=== PATIENT | female | born 1955 | race Caucasian/White ===

== ENCOUNTER 2019-12-08 23:16 | Emergency (ER) | payer OTHER ==
[~2019-12-08] VITALS: Ht 162.6 cm; Wt 105.0 kg
[2019-12-09 00:10] LABS: BASOPHILS # (AUTO) 0.2 X10'3 (0-0.2); BASOPHILS % (AUTO) 1.7 % (0-1); EOSINOPHILS # (AUTO) 0.3 X10'3 (0-0.9); HEMATOCRIT 49.4 % (35.0-45.0); HEMOGLOBIN 16.7 g/dl (12.0-16.0); LYMPHOCYTES # (AUTO) 2.8 X10'3 (1.1-4.8); LYMPHOCYTES % (AUTO) 25.9 % (21-51); MEAN CORPUSCULAR HEMOGLOBIN 32.8 PG (27.0-31.0); MEAN CORPUSCULAR HGB CONC 33.7 g/dL (33.0-36.5); MEAN CORPUSCULAR VOLUME 97.4 FL (78-98); MEAN PLATELET VOLUME 8.9 FL (7.4-10.4); MONOCYTES # (AUTO) 1.7 X10'3 (0-0.9); MONOCYTES % (AUTO) 15.5 % (2-12); NEUTROPHILS # (AUTO) 5.7 X10'3 (1.8-7.7); NEUTROPHILS % (AUTO) 53.9 % (42-75); PLATELET COUNT 261 X10'3 (140-440); RED BLOOD COUNT 5.08 X10'6 (4.20-5.60); RED CELL DISTRIBUTION WIDTH 13.4 % (11.5-14.5); WHITE BLOOD COUNT 10.7 X10'3 (4.5-11.0)
[2019-12-09 00:31] LABS: ALANINE AMINOTRANSFERASE 21 U/L (12-78); ALBUMIN 3.7 G/DL (3.4-5.0); ALBUMIN/GLOBULIN RATIO 1.1 (1.1-1.5); ALKALINE PHOSPHATASE 132 IU/L (46-116); ANION GAP 8 (8-16); ASPARTATE AMINO TRANSFERASE 14 U/L (10-37); BILIRUBIN,TOTAL 0.4 MG/DL (0.1-1.0); BLOOD UREA NITROGEN 16 MG/DL (7-18); BUN/CREATININE RATIO 15.2 (6.6-38.0); CALCIUM 9.3 MG/DL (8.5-10.1); CHLORIDE 105 MMOL/L (99-107); CREATININE 1.05 MG/DL (0.40-0.90); GLUCOSE 105 MG/DL (70-104); POTASSIUM 3.3 MMOL/L (3.5-5.1); SODIUM 140 MMOL/L (135-145); TOTAL CARBON DIOXIDE 27.1 MMOL/L (24-32); eGFR 53 ML/MIN
[2019-12-09 00:34] LABS: TOTAL CELLS COUNTED 100
[2019-12-09 00:35] LABS: PLATELET ESTIMATE NORMAL
[2019-12-09 01:14] VITALS: BP 158/67
== END 2019-12-09 01:15 | disposition home or self-care (01) ==
LOC: ER 23:17
DX: R07.89 Other chest pain (principal); R00.2 Palpitations; R06.02 Shortness of breath; E78.00 Pure hypercholesterolemia, unspecified; I10 Essential (primary) hypertension; E11.9 Type 2 diabetes mellitus without complications; F17.200 Nicotine dependence, unspecified, uncomplicated
CPT/HCPCS: 71045; 80053; 83880; 84484; 85007; 85025; 93005; 99285

== ENCOUNTER 2020-03-13 01:20 | Inpatient (IN) | payer OTHER, MEDICARE ==
[~2020-03-13] VITALS: Ht 162.6 cm; Wt 110.0 kg
[2020-03-13] VITALS (24 sets, daily range): BP systolic 81–126; BP diastolic 35–69
[~2020-03-13 01:20] MED LIST: ALPR1TAB7 PO; GLIP5TAB13 PO; METF-438 PO; METO-411 PO
[2020-03-13 02:32] LABS: ALANINE AMINOTRANSFERASE 20 U/L (12-78); ALBUMIN 3.2 G/DL (3.4-5.0); ALBUMIN/GLOBULIN RATIO 0.8 (1.1-1.5); ALKALINE PHOSPHATASE 148 IU/L (46-116); ANION GAP 11 (8-16); ASPARTATE AMINO TRANSFERASE 21 U/L (10-37); BILIRUBIN,TOTAL 0.5 MG/DL (0.1-1.0); BLOOD UREA NITROGEN 17 MG/DL (7-18); BUN/CREATININE RATIO 11.6 (6.6-38.0); CALCIUM 9.5 MG/DL (8.5-10.1); CHLORIDE 104 MMOL/L (99-107); CREATININE 1.46 MG/DL (0.40-0.90); GLUCOSE 127 MG/DL (70-104); POTASSIUM 5.1 MMOL/L (3.5-5.1); SODIUM 136 MMOL/L (135-145); TOTAL CARBON DIOXIDE 21.3 MMOL/L (24-32); TOTAL PROTEIN 7.3 G/DL (6.4-8.2); eGFR 36 ML/MIN
[2020-03-13] MEDS ORDERED: vancomycin/NS 1 GM ADD-VANTAGE 250 ML IV ONE (02:50)
[2020-03-13 02:55] LABS: BASOPHILS # (AUTO) 0.1 X10'3 (0-0.2); EOSINOPHILS # (AUTO) 0.5 X10'3 (0-0.9); HEMOGLOBIN 11.5 g/dl (12.0-16.0)
[2020-03-13] MEDS ORDERED: magnesium Cl slow-release 64mg tablet PO PRN (02:55)
[2020-03-13] MEDS ORDERED: magnesium 4gm in 100ml NS 100 ML IV PRN (02:55)
[2020-03-13] MEDS ORDERED: potassium Cl 20 mEq SR tablet PO PRN ×2 (02:55)
[2020-03-13] MEDS ORDERED: mag hydrox/Alum hydrox/simeth 30ml oral suspension PO PRN (02:55)
[2020-03-13] MEDS ORDERED: potassium CL 10mEq/100ml bag 100 ML IV PRN ×2 (02:55)
[2020-03-13] MEDS ORDERED: magnesium hydroxide 30ml (MOM) UD suspension PO PRN (02:55)
[2020-03-13] MEDS ORDERED: magnesium 2GM in 50ml NS 50 ML IV PRN (02:55)
[2020-03-13 02:57] LABS: BASOPHILS % (AUTO) 0.9 % (0-1); EOSINOPHILS % (AUTO) 3.9 % (0-6); LYMPHOCYTES # (AUTO) 1.3 X10'3 (1.1-4.8); LYMPHOCYTES % (AUTO) 9.5 % (21-51); MEAN CORPUSCULAR HGB CONC 32.9 g/dL (33.0-36.5); MEAN CORPUSCULAR VOLUME 97.2 FL (78-98); MEAN PLATELET VOLUME 9.3 FL (7.4-10.4); MONOCYTES # (AUTO) 1.9 X10'3 (0-0.9); NEUTROPHILS # (AUTO) 9.7 X10'3 (1.8-7.7); NEUTROPHILS % (AUTO) 71.7 % (42-75); PLATELET COUNT 264 X10'3 (140-440); WHITE BLOOD COUNT 13.5 X10'3 (4.5-11.0)
[2020-03-13] MEDS ORDERED: METO100T7 PO (03:05)
[2020-03-13] MEDS ORDERED: FURO40TA4 PO (03:06)
[2020-03-13] MEDS ORDERED: POTA10CA44 PO (03:07)
[2020-03-13] MEDS ORDERED: DIPH25CA83 PO (03:08)
[2020-03-13] MEDS ORDERED: IBUP-2417 PO (03:15)
[2020-03-13] MEDS ORDERED: MELA10TA2 PO (03:15)
[2020-03-13] MEDS ORDERED: MULT-1085 PO (03:15)
[2020-03-13] MEDS ORDERED: OMEP40CA13 PO (03:15)
[2020-03-13] MEDS ORDERED: VIT1CAPS46 PO (03:15)
[2020-03-13] MEDS ORDERED: ASPI81TA52 PO (03:15)
[2020-03-13] MEDS ORDERED: ACET-2119 PO (03:15)
[2020-03-13] MEDS ORDERED: DOCU-171 PO (03:15)
[2020-03-13 03:17] LABS: CLARITY,URINE CLEAR (Clear); COLOR,URINE YELLOW (Yellow); GLUCOSE, URINE NEGATIVE (Neg); KETONES,URINE NEGATIVE (Neg); LEUKOCYTE ESTERASE ,URINE SMALL (Neg); NITRITES, URINE NEGATIVE (Neg); OCCULT BLOOD,URINE SMALL (Neg); PROTEIN,URINE 30 mg/dl (Neg); UROBILINOGEN,URINE 0.2 E.U/dL (0.2-1.0)
[2020-03-13 03:19] LABS: UA COLLECTION TYPE STRAIGHT CATH
[2020-03-13 03:24] LABS: SQUAMOUS EPITHELIAL CELL,UR FEW /LPF (FEW)
[2020-03-13 03:25] LABS: BACTERIA,URINE 4+ /HPF (Neg); RBC,URINE 0-2 /HPF (0-2); WBC CLUMPS,URINE MODERATE /HPF (NEGATIVE); WBC,URINE 50-100 /HPF (0-4)
[2020-03-13] MEDS: normal saline 1000ml 1,000 ML IV SCH ×3 (03:36→22:55)
[2020-03-13 04:58] LABS: LARGE PLATELETS FEW; PLATELET ESTIMATE NORMAL; TOTAL CELLS COUNTED 100
[2020-03-13 04:59] LABS: STOMATOCYTES 1+
[2020-03-13 05:00] LABS: ANISOCYTOSIS 1+
[2020-03-13 05:01] LABS: POLYCHROMASIA FEW
[2020-03-13 05:02] LABS: TOXIC VACUOLATION 1+
[2020-03-13 05:03] LABS: TOXIC GRANULATION 1+
[2020-03-13] MEDS ORDERED: metoprolol succinate 25mg (24-HOUR) SR. Tablet PO PRN (05:45)
[2020-03-13] MEDS ORDERED: ibuprofen 200mg tablet PO PRN (05:45)
[2020-03-13] MEDS ORDERED: dextrose 50%-water 50ml dispensing syringe IV PRN ×2 (05:50)
[2020-03-13] MEDS ORDERED: MESSAGE TO PHARMACY PO ONE (05:50)
[2020-03-13] MEDS ORDERED: dextrose ORAL solution 15 GM/59 ML bottle PO PRN ×2 (05:50)
[2020-03-13] MEDS ORDERED: glucagon, human recombinant 1mg kit SUBCUT PRN (05:50)
[2020-03-13] MEDS ORDERED: insulin Lispro (HumaLOG) vial - multi-dose SQ SCH (05:50)
--- NOTE | 2020-03-13 06:29 | NUR ---
Patient in room [facility]. I have received report from ALFREDO Montalvo and had the opportunity to ask questions and assume patient care.
--- NOTE | 2020-03-13 06:51 | NUR ---
Problems reprioritized. Patient report given, questions answered & plan of care reviewed with Sara. Addendum: 03/13/20 at 0652 by Salvatore Dozier RN Amended: Links added.
[2020-03-13] MEDS: ALPRAZolam 0.5mg tablet PO PRN (06:56)
[2020-03-13] MEDS: CefTRIAXone/D5W-Rocephin 1gm 50 ML IV SCH (07:01)
[2020-03-13] MEDS: furosemide 40mg tablet PO SCH (07:05)
[2020-03-13] MEDS: aspirin 81mg tablet.DR PO SCH (07:05)
[2020-03-13] MEDS: K and/or MAG REPLACEMENT MC SCH ×2 (07:05→20:00)
[2020-03-13] MEDS ORDERED: ringers solution, lacted 1,000 ML IV SCH ×2 (07:40→13:40)
[2020-03-13] MEDS ORDERED: famotidine/PF 10 mg/ml inj IV ONE (07:45)
[2020-03-13] MEDS: vancomycin/NS 1 GM ADD-VANTAGE 250 ML X 1 DOSE IV SCH (08:12)
[2020-03-13 09:06] LABS: PARTIAL THROMBOPLASTIN TIME 30 SECONDS (22-32)
--- NOTE | 2020-03-13 11:03 | NUR ---
Patient c/o itching due to eczema. Dr. Koroma notified. PAGER ID: [phone] MESSAGE: Ashliea- Dorothea Otero- patient has eczema. c/o itching. states normally takes Benadryl po at home but does not want PO as "it'll dry my mouth right up." OK to have IV benardryl for the itching? Thank you- Sara [id number]
[2020-03-13] MEDS: triamcinolone acet 0.1% cream 15gm TP SCH ×2 (12:15→20:00)
[2020-03-13] MEDS ORDERED: vancomycin 1,000mg inj ONE (13:17)
--- NOTE | 2020-03-13 13:19 | NUR ---
Patient down to OR.
--- NOTE | 2020-03-13 13:21 | NUR ---
Called report to ALFREDO Oliva.
--- NOTE | 2020-03-13 13:36 | NUR ---
Dr. Koroma notified of patient's positive blood cultures. PAGER ID: [phone] MESSAGE: [id number]- Dorothea Otero-(+) blood cultures. anaerobic bottle 03/13 gram neg rods. - sita [id number]
[2020-03-13] MEDS ORDERED: ondansetron/PF 4mg/2ml inj IV PRN (13:40)
[2020-03-13] MEDS ORDERED: meperidine/PF 25mg/ml syringe IV PRN ×3 (13:40)
[2020-03-13] MEDS ORDERED: proCHLORperazine 10 MG/2 ml inj IV PRN (13:40)
[2020-03-13] MEDS ORDERED: morphine 2 MG/ML inj. syringe IV PRN ×3 (13:40→20:45)
[2020-03-13] MEDS ORDERED: morphine 4 MG/ML inj SYRINge IV PRN (13:40)
[2020-03-13] MEDS ORDERED: fentaNYL/PF 50MCG/1 ML 2ML syringe ONE ×2 (13:41→13:44)
[2020-03-13] MEDS ORDERED: MIDAZolam 5mg/5ml vial ONE (13:43)
[2020-03-13] MEDS ORDERED: propofol inj 20 ML IV ONE (14:19)
--- NOTE | 2020-03-13 15:12 | NUR ---
FROM OR WITH DR. POLANCO ON SURGICAL BED. DSG CDI TO LEFT HIP. NAKUL DSG DCI. PPP. SKIN WARM AND DRY.CO PAIN, MED WITH DEMEROL.
--- NOTE | 2020-03-13 15:26 | NUR ---
DM Consult: Pt A1C less than 7 and not appropriate for DM ed at this time. To f/u 03/18 for initial assessment. Addendum: 03/13/20 at [address] Amended: Links added.
--- NOTE | 2020-03-13 15:33 | NUR ---
LAB CALLED. PATIENT HAS 2 MORE BOTTLES POSITIVE POSITIVE BETWEEN 9-11 HOURS 2 RIGHT ARM AND 1 IV START SITE POSITIVE FOR GRAM NEGATIVE RODS.
--- NOTE | 2020-03-13 15:36 | NUR ---
Dr Koroma notified of patient's 2 more bottles blood cultures positive. LAB CALLED. PATIENT HAS 2 MORE BOTTLES POSITIVE POSITIVE BETWEEN 9-11 HOURS 2 RIGHT ARM AND 1 IV START SITE POSITIVE FOR GRAM NEGATIVE RODS.
--- NOTE | 2020-03-13 15:42 | NUR ---
STILL TREATING FOR EXCRUCIATING PAIN. SWITCHED FROM DEMEROL TO MORPHINE.
[2020-03-13] MEDS ORDERED: meperidine/PF 25mg/ml syringe ONE (15:45)
--- NOTE | 2020-03-13 16:12 | NUR ---
PT STARTING TO GET SOME RELIEF FROM PAIN. BP IS LOW, DR POLANCO NOTIFIED FOR POSSIBLE TYLENOL IV DUE TO HYPOTENSION.
[2020-03-13] MEDS: morphine 2 MG/ML inj. syringe IV PRN ×2 (16:26→16:42)
--- NOTE | 2020-03-13 17:00 | NUR ---
Received report from ALFREDO Oliva.
--- NOTE | 2020-03-13 17:02 | NUR ---
PATIENT A&OX4, C/O PAIN AT TIMES SEE EMAR, V/S STABLE, NAKUL DRESSING CDI LLE HIP. SCD ON, 20G PIV RAC. PATIENT TAKEN TO 346A WITH ALL BELONGINGS AND HOOKED UP TO MONITORS IN ROOM AND REPORT GIVEN TO SEO ANALYST WHO HAS TAKEN OVER PATIENT CARE,
--- NOTE | 2020-03-13 17:39 | NUR ---
Received patient to room 344A in bed accompanied by ALFREDO Oliva. Patient c/o pain to left hip. Wilner dressing to left hip CDI. BP was 93/35, pulse 89, 70% RA. Changed spo2 probe to different finger and O2 went up to 96% RA. Per ALFREDO Oliva vitals have remained stable in recovery room. BP rechecked and 104/43. Patient placed on 2LNC 94,99% . Charge Karo in at bedside to assess patient. Bed placed in Trendelenburg position. Patient is alert and oriented with no comlaints other than pain to left hip. SCDs on. Immobilizer to left leg. Will continue to monitor.
--- NOTE | 2020-03-13 18:30 | NUR ---
Patient in room [facility]. I have received report from Sara FUENTES and had the opportunity to ask questions and assume patient care.
--- NOTE | 2020-03-13 18:46 | NUR ---
Problems reprioritized. Patient report given, questions answered & plan of care reviewed with ALFREDO Walls.
[2020-03-13] MEDS ORDERED: enoxaparin 40mg/0.4ml syringe SQ SCH (20:00)
[2020-03-13] MEDS ORDERED: triamcinolone acet 0.1% cream 15gm TP SCH (20:00)
[2020-03-13] MEDS: acetaminophen 325mg tablet PO PRN (20:26)
[2020-03-13] MEDS: lactobacillus rhamnosus 10,000 MMU CELLS/CAPSULE PO SCH (20:27)
[2020-03-13] MEDS: Melatonin 3mg tablet PO SCH (20:28)
[2020-03-13] MEDS: insulin glargine (Lantus) pen - multi-dose SQ SCH (21:00)
[2020-03-13] MEDS ORDERED: MELATONIN 10 MG PO SCH (21:00)
[2020-03-14] VITALS: BP 111/46
[2020-03-14 02:00] VITALS: BP 94/43
[2020-03-14] MEDS: ondansetron/PF 4mg/2ml inj IV PRN ×3 (02:03→21:52)
[2020-03-14] MEDS: oxyCODONE/APAP 5-325mg tablet PO PRN ×4 (02:03→21:51)
[2020-03-14] MEDS: triamcinolone acet 0.1% cream 15gm TP SCH ×2 (02:21→20:00)
[2020-03-14] MEDS: ALPRAZolam 0.5mg tablet PO PRN ×3 (02:26→23:12)
[2020-03-14 05:23] LABS: EOSINOPHILS # (AUTO) 0.7 X10'3 (0-0.9); WHITE BLOOD COUNT 12.5 X10'3 (4.5-11.0)
[2020-03-14 05:26] LABS: BASOPHILS % (AUTO) 0.3 % (0-1); EOSINOPHILS % (AUTO) 5.8 % (0-6); HEMATOCRIT 28.8 % (35.0-45.0); HEMOGLOBIN 9.4 g/dl (12.0-16.0); LYMPHOCYTES # (AUTO) 1.5 X10'3 (1.1-4.8); LYMPHOCYTES % (AUTO) 11.7 % (21-51); MEAN CORPUSCULAR HEMOGLOBIN 32.1 PG (27.0-31.0); MEAN CORPUSCULAR HGB CONC 32.6 g/dL (33.0-36.5); MEAN CORPUSCULAR VOLUME 98.5 FL (78-98); MEAN PLATELET VOLUME 9.4 FL (7.4-10.4); MONOCYTES # (AUTO) 2.1 X10'3 (0-0.9); MONOCYTES % (AUTO) 16.6 % (2-12); NEUTROPHILS # (AUTO) 8.2 X10'3 (1.8-7.7); NEUTROPHILS % (AUTO) 65.6 % (42-75); PLATELET COUNT 220 X10'3 (140-440); RED BLOOD COUNT 2.92 X10'6 (4.20-5.60); RED CELL DISTRIBUTION WIDTH 14.3 % (11.5-14.5)
[2020-03-14 05:37] LABS: ALANINE AMINOTRANSFERASE 13 U/L (12-78); ALBUMIN 2.1 G/DL (3.4-5.0); ALBUMIN/GLOBULIN RATIO 0.7 (1.1-1.5); ALKALINE PHOSPHATASE 102 IU/L (46-116); ANION GAP 8 (8-16); ASPARTATE AMINO TRANSFERASE 14 U/L (10-37); BILIRUBIN,TOTAL 0.5 MG/DL (0.1-1.0); BLOOD UREA NITROGEN 20 MG/DL (7-18); BUN/CREATININE RATIO 11.1 (6.6-38.0); CALCIUM 8.4 MG/DL (8.5-10.1); CHLORIDE 110 MMOL/L (99-107); GLUCOSE 117 MG/DL (70-104); MAGNESIUM 1.8 MG/DL (1.5-2.4); POTASSIUM 4.6 MMOL/L (3.5-5.1); SODIUM 140 MMOL/L (135-145); TOTAL CARBON DIOXIDE 22.2 MMOL/L (24-32); TOTAL PROTEIN 5.3 G/DL (6.4-8.2); eGFR 28 ML/MIN
--- NOTE | 2020-03-14 06:15 | NUR ---
bolus 200ml of NS for hypotension informed oncoming nurse
--- NOTE | 2020-03-14 06:48 | NUR ---
Problems reprioritized. Patient report given, questions answered & plan of care reviewed with Kaelyn FUENTES.
[2020-03-14 07:27] LABS: ANISOCYTOSIS 1+; PLATELET ESTIMATE NORMAL; TOTAL CELLS COUNTED 100
[2020-03-14 07:28] LABS: LARGE PLATELETS FEW; POLYCHROMASIA FEW; TOXIC GRANULATION 1+; TOXIC VACUOLATION 1+
[2020-03-14 08:00] VITALS: BP 95/37
[2020-03-14] MEDS: furosemide 40mg tablet PO SCH (08:00)
[2020-03-14] MEDS: K and/or MAG REPLACEMENT MC SCH ×2 (08:00→20:00)
[2020-03-14] MEDS: normal saline 1000ml 1,000 ML IV SCH ×2 (08:55→20:38)
[2020-03-14] MEDS: CefTRIAXone/D5W-Rocephin 1gm 50 ML IV SCH (09:47)
[2020-03-14] MEDS: aspirin 81mg tablet.DR PO SCH (09:47)
[2020-03-14] MEDS: lactobacillus rhamnosus 10,000 MMU CELLS/CAPSULE PO SCH ×2 (09:47→21:51)
[2020-03-14 11:00] VITALS: BP 99/45
[2020-03-14] MEDS: vancomycin/NS 1 GM ADD-VANTAGE 250 ML X 1 DOSE IV SCH (12:59)
[2020-03-14] MEDS: lactose-reduced food (Ensure High Protein) 237ml bottle PO SCH (18:00)
--- NOTE | 2020-03-14 18:44 | NUR ---
Report to Kasia FUENTES
[2020-03-14 20:00] VITALS: BP 109/52
[2020-03-14] MEDS: insulin glargine (Lantus) pen - multi-dose SQ SCH (21:00)
[2020-03-14] MEDS: enoxaparin 30mg/0.3ml syringe SQ SCH (21:52)
[2020-03-14] MEDS: Melatonin 3mg tablet PO SCH (22:09)
[2020-03-15] VITALS: BP 102/53
[2020-03-15 04:49] LABS: EOSINOPHILS # (AUTO) 1.5 X10'3 (0-0.9); LYMPHOCYTES # (AUTO) 1.5 X10'3 (1.1-4.8); MONOCYTES # (AUTO) 1.4 X10'3 (0-0.9)
[2020-03-15 04:51] LABS: BASOPHILS # (AUTO) 0.1 X10'3 (0-0.2); BASOPHILS % (AUTO) 0.7 % (0-1); EOSINOPHILS % (AUTO) 15.7 % (0-6); HEMATOCRIT 28.3 % (35.0-45.0); HEMOGLOBIN 9.5 g/dl (12.0-16.0); MEAN CORPUSCULAR HGB CONC 33.6 g/dL (33.0-36.5); MEAN CORPUSCULAR VOLUME 98.3 FL (78-98); MEAN PLATELET VOLUME 9.2 FL (7.4-10.4); MONOCYTES % (AUTO) 14.1 % (2-12); NEUTROPHILS # (AUTO) 5.4 X10'3 (1.8-7.7); NEUTROPHILS % (AUTO) 54.5 % (42-75); PLATELET COUNT 220 X10'3 (140-440); RED BLOOD COUNT 2.87 X10'6 (4.20-5.60); RED CELL DISTRIBUTION WIDTH 13.7 % (11.5-14.5); WHITE BLOOD COUNT 9.8 X10'3 (4.5-11.0)
[2020-03-15] MEDS: normal saline 1000ml 1,000 ML IV SCH ×2 (04:55→12:12)
[2020-03-15 05:02] LABS: ALANINE AMINOTRANSFERASE 17 U/L (12-78); ALBUMIN 2.1 G/DL (3.4-5.0); ALBUMIN/GLOBULIN RATIO 0.5 (1.1-1.5); ALKALINE PHOSPHATASE 115 IU/L (46-116); ANION GAP 9 (8-16); ASPARTATE AMINO TRANSFERASE 15 U/L (10-37); BILIRUBIN,TOTAL 0.3 MG/DL (0.1-1.0); BLOOD UREA NITROGEN 21 MG/DL (7-18); BUN/CREATININE RATIO 12.4 (6.6-38.0); CHLORIDE 109 MMOL/L (99-107); GLUCOSE 98 MG/DL (70-104); POTASSIUM 4.3 MMOL/L (3.5-5.1); SODIUM 140 MMOL/L (135-145); TOTAL CARBON DIOXIDE 21.6 MMOL/L (24-32); eGFR 30 ML/MIN
[2020-03-15] MEDS: oxyCODONE/APAP 5-325mg tablet PO PRN ×3 (05:21→19:39)
[2020-03-15] MEDS: ondansetron/PF 4mg/2ml inj IV PRN (05:22)
[2020-03-15 08:00] VITALS: BP 100/41
[2020-03-15] MEDS: furosemide 40mg tablet PO SCH (08:00)
[2020-03-15] MEDS: K and/or MAG REPLACEMENT MC SCH ×2 (08:00→19:40)
[2020-03-15] MEDS: triamcinolone acet 0.1% cream 15gm TP SCH ×2 (08:03→19:41)
[2020-03-15] MEDS: lactobacillus rhamnosus 10,000 MMU CELLS/CAPSULE PO SCH ×2 (08:03→19:38)
[2020-03-15] MEDS: aspirin 81mg tablet.DR PO SCH (08:03)
[2020-03-15] MEDS: CefTRIAXone/D5W-Rocephin 1gm 50 ML IV SCH (08:04)
[2020-03-15] MEDS: lactose-reduced food (Ensure High Protein) 237ml bottle PO SCH ×3 (08:07→18:00)
--- NOTE | 2020-03-15 09:16 | NUR ---
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 Nirmala [id number]
[2020-03-15] MEDS: vancomycin/NS 1 GM ADD-VANTAGE 250 ML X 1 DOSE IV SCH (09:51)
[2020-03-15 18:00] VITALS: BP 140/67
--- NOTE | 2020-03-15 18:29 | NUR ---
Patient in room [facility]. I have received report from Nirmala FUENTES and had the opportunity to ask questions and assume patient care.
--- NOTE | 2020-03-15 18:29 | NUR ---
Problems reprioritized. Patient report given, questions answered & plan of care reviewed with Cathleen FUENTES.
[2020-03-15] MEDS: enoxaparin 30mg/0.3ml syringe SQ SCH (19:38)
[2020-03-15] MEDS: bisacodyl 5mg tablet.DR PO SCH (19:39)
[2020-03-15] MEDS: benztropine 1mg tablet PO SCH (19:40)
[2020-03-15] MEDS: Melatonin 3mg tablet PO SCH (20:37)
[2020-03-15] MEDS: ALPRAZolam 0.5mg tablet PO PRN (20:37)
[2020-03-15] MEDS: insulin glargine (Lantus) pen - multi-dose SQ SCH (21:00)
[2020-03-15] MEDS: acetaminophen 325mg tablet PO PRN (23:13)
[2020-03-16] VITALS: BP 143/71
[2020-03-16] MEDS: normal saline 1000ml 1,000 ML IV SCH (01:23)
[2020-03-16] MEDS: oxyCODONE/APAP 5-325mg tablet PO PRN ×2 (01:23→08:10)
--- NOTE | 2020-03-16 06:15 | NUR ---
Patient in room [facility]. I have received report from ALFREDO Connolly and had the opportunity to ask questions and assume patient care.
[2020-03-16 06:30] VITALS: BP 117/58
--- NOTE | 2020-03-16 06:35 | NUR ---
Problems reprioritized. Patient report given, questions answered & plan of care reviewed with Evelyn RN.
[2020-03-16] MEDS ORDERED: VANCOMYCIN LEVEL IV ONE (07:30)
[2020-03-16] MEDS: CefTRIAXone/D5W-Rocephin 1gm 50 ML IV SCH (07:56)
[2020-03-16] MEDS: lactobacillus rhamnosus 10,000 MMU CELLS/CAPSULE PO SCH (07:56)
[2020-03-16] MEDS: bisacodyl 5mg tablet.DR PO SCH (07:57)
[2020-03-16] MEDS: furosemide 40mg tablet PO SCH (07:57)
[2020-03-16] MEDS: aspirin 81mg tablet.DR PO SCH (07:57)
[2020-03-16] MEDS: K and/or MAG REPLACEMENT MC SCH (08:00)
[2020-03-16] MEDS: benztropine 1mg tablet PO SCH (08:00)
[2020-03-16] MEDS: lactose-reduced food (Ensure High Protein) 237ml bottle PO SCH ×2 (08:04→13:56)
[2020-03-16] MEDS: triamcinolone acet 0.1% cream 15gm TP SCH (08:05)
[2020-03-16 08:22] LABS: MEAN PLATELET VOLUME 8.9 FL (7.4-10.4); WHITE BLOOD COUNT 7.5 X10'3 (4.5-11.0)
[2020-03-16 08:24] LABS: BASOPHILS # (AUTO) 0.1 X10'3 (0-0.2); BASOPHILS % (AUTO) 0.9 % (0-1); EOSINOPHILS # (AUTO) 1.7 X10'3 (0-0.9); EOSINOPHILS % (AUTO) 22.1 % (0-6); HEMATOCRIT 26.4 % (35.0-45.0); LYMPHOCYTES # (AUTO) 1.4 X10'3 (1.1-4.8); LYMPHOCYTES % (AUTO) 18.8 % (21-51); MEAN CORPUSCULAR HEMOGLOBIN 33.5 PG (27.0-31.0); MEAN CORPUSCULAR HGB CONC 34.2 g/dL (33.0-36.5); MEAN CORPUSCULAR VOLUME 98.1 FL (78-98); MONOCYTES # (AUTO) 1.1 X10'3 (0-0.9); MONOCYTES % (AUTO) 15.1 % (2-12); NEUTROPHILS # (AUTO) 3.2 X10'3 (1.8-7.7); NEUTROPHILS % (AUTO) 43.1 % (42-75); PLATELET COUNT 248 X10'3 (140-440); RED BLOOD COUNT 2.69 X10'6 (4.20-5.60); RED CELL DISTRIBUTION WIDTH 13.9 % (11.5-14.5)
[2020-03-16 08:33] LABS: ALANINE AMINOTRANSFERASE 13 U/L (12-78); ALBUMIN 1.9 G/DL (3.4-5.0); ALBUMIN/GLOBULIN RATIO 0.5 (1.1-1.5); ALKALINE PHOSPHATASE 103 IU/L (46-116); ANION GAP 9 (8-16); ASPARTATE AMINO TRANSFERASE 10 U/L (10-37); BILIRUBIN,TOTAL 0.2 MG/DL (0.1-1.0); BLOOD UREA NITROGEN 16 MG/DL (7-18); BUN/CREATININE RATIO 11.3 (6.6-38.0); CALCIUM 9.5 MG/DL (8.5-10.1); CHLORIDE 109 MMOL/L (99-107); CREATININE 1.42 MG/DL (0.40-0.90); GLUCOSE 93 MG/DL (70-104); POTASSIUM 4.3 MMOL/L (3.5-5.1); SODIUM 141 MMOL/L (135-145); TOTAL CARBON DIOXIDE 23.5 MMOL/L (24-32); TOTAL PROTEIN 5.6 G/DL (6.4-8.2); VANCOMYCIN,TROUGH 19.3 UG/ML (6.0-14.0); eGFR 37 ML/MIN
[2020-03-16] MEDS ORDERED: linezolid 600mg tablet PO SCH (08:40)
[2020-03-16] MEDS ORDERED: levoFLOXACIN 750MG TABLET PO SCH (08:40)
[2020-03-16 11:00] VITALS: BP 108/55
[2020-03-16] MEDS: ALPRAZolam 0.5mg tablet PO PRN (12:03)
[2020-03-16] MEDS ORDERED: LINE600T14 PO (13:20)
[2020-03-16] MEDS ORDERED: LEVO750T46 PO (13:20)
== END 2020-03-16 16:37 | disposition home health service (06) | DRG 856 ==
LOC: ER 01:21 → ED HOLD 02:55 → SUR 3N 03:50
PROVIDERS: ADMIT Family Medicine; ATTEND Internal Medicine
PROC: 0SPS0JZ Removal of Synthetic Substitute from Left Hip Joint, Femoral Surface, Open Approach (ICD-10-PCS; 2020-03-13)
PROC: 0SRS0JZ Replacement of Left Hip Joint, Femoral Surface with Synthetic Substitute, Open Approach (ICD-10-PCS; principal; 2020-03-13 13:41)
DX: T81.41XA Infection following a procedure, superficial incisional surgical site, initial encounter (principal); A41.51 Sepsis due to Escherichia coli [E. coli]; T81.30XA Disruption of wound, unspecified, initial encounter; N39.0 Urinary tract infection, site not specified; T84.021A Dislocation of internal left hip prosthesis, initial encounter; Z87.440 Personal history of urinary (tract) infections; E78.5 Hyperlipidemia, unspecified; Z96.641 Presence of right artificial hip joint; B95.62 Methicillin resistant Staphylococcus aureus infection as the cause of diseases classified elsewhere; M19.90 Unspecified osteoarthritis, unspecified site; E11.22 Type 2 diabetes mellitus with diabetic chronic kidney disease; I12.9 Hypertensive chronic kidney disease with stage 1 through stage 4 chronic kidney disease, or unspecified chronic kidney disease; N18.30 Chronic kidney disease, stage 3 unspecified; Y83.8 Other surgical procedures as the cause of abnormal reaction of the patient, or of later complication, without mention of misadventure at the time of the procedure; Y82.8 Other medical devices associated with adverse incidents; Z20.828 Contact with and (suspected) exposure to other viral communicable diseases; Z88.8 Allergy status to other drugs, medicaments and biological substances; Z88.1 Allergy status to other antibiotic agents; Z91.040 Latex allergy status; E78.00 Pure hypercholesterolemia, unspecified; F41.9 Anxiety disorder, unspecified; G47.00 Insomnia, unspecified; Z82.49 Family history of ischemic heart disease and other diseases of the circulatory system
CPT/HCPCS: 96365; 99285; Z7506; Z7508; 36415; 71045; 73502; 76937; 80053; 80202; 81001; 82948; 83605; 83735; 84145; 85007; 85025; 85610; 85730; 87040; 87070; 87075; 87077; 87081; 87088; 87186; 87635; 93005; 97110; 97116; 97530; A7000; A9272; C1776; G0378; J0696; J1650; J1815; J2175; J2250; J2270; J2405; J2704; J3010; J3370; J3490; J7030

== ENCOUNTER 2022-08-06 20:09 | Inpatient (IN) | payer MEDICARE, BC ==
[~2022-08-06] VITALS: Ht 162.6 cm; Wt 100.0 kg
[~2022-08-06 20:09] MED LIST changes: +ACET-2119 PO; +ASPI81TA52 PO; +DIPH25CA83 PO; +DOCU-171 PO; +FURO40TA4 PO; +LEVO750T68 PO; +LINE600T14 PO; +MELA10TA2 PO; -METF-438 PO; -METO-411 PO; +METO100T7 PO; +MULT-1085 PO; +OMEP40CA21 PO; +POTA10CA45 PO; +VIT1CAPS46 PO
[2022-08-06 20:31] LABS: BASOPHILS # (AUTO) 0.1 X10'3 (0-0.2); BASOPHILS % (AUTO) 1.2 % (0-1); EOSINOPHILS % (AUTO) 11.5 % (0-6); HEMATOCRIT 48.3 % (35.0-45.0); HEMOGLOBIN 16.2 g/dl (12.0-16.0); LYMPHOCYTES # (AUTO) 2.2 X10'3 (1.1-4.8); LYMPHOCYTES % (AUTO) 25.4 % (21-51); MEAN CORPUSCULAR HEMOGLOBIN 31.6 PG (27.0-31.0); MEAN CORPUSCULAR HGB CONC 33.6 g/dL (33.0-36.5); MEAN CORPUSCULAR VOLUME 94.2 FL (78-98); MEAN PLATELET VOLUME 8.9 FL (7.4-10.4); MONOCYTES # (AUTO) 1.3 X10'3 (0-0.9); MONOCYTES % (AUTO) 14.3 % (2-12); NEUTROPHILS # (AUTO) 4.2 X10'3 (1.8-7.7); NEUTROPHILS % (AUTO) 47.6 % (42-75); PLATELET COUNT 234 X10'3 (140-440); RED BLOOD COUNT 5.13 X10'6 (4.20-5.60); RED CELL DISTRIBUTION WIDTH 13.2 % (11.5-14.5); WHITE BLOOD COUNT 8.9 X10'3 (4.5-11.0)
[2022-08-06 20:40] LABS: ALANINE AMINOTRANSFERASE 18 U/L (12-78); ALBUMIN 3.7 G/DL (3.4-5.0); ALBUMIN/GLOBULIN RATIO 1.2 (1.1-1.5); ALKALINE PHOSPHATASE 103 IU/L (46-116); ANION GAP 13 (8-16); ASPARTATE AMINO TRANSFERASE 11 U/L (10-37); BILIRUBIN,TOTAL 0.3 MG/DL (0.1-1.0); BLOOD UREA NITROGEN 17 MG/DL (7-18); BUN/CREATININE RATIO 11.6 (10.0-20.0); CALCIUM 9.7 MG/DL (8.5-10.1); CHLORIDE 103 MMOL/L (99-107); CREATININE 1.47 MG/DL (0.40-0.90); GLUCOSE 131 MG/DL (70-104); POTASSIUM 3.8 MMOL/L (3.5-5.1); SODIUM 143 MMOL/L (135-145); TOTAL CARBON DIOXIDE 27.2 MMOL/L (24-32); TOTAL PROTEIN 6.8 G/DL (6.4-8.2); eGFR 35 ML/MIN
[2022-08-06 20:47] LABS: MAGNESIUM 1.7 MG/DL (1.5-2.4)
[2022-08-06] MEDS ORDERED: DEXTROSE 15 GM of carb/4 tabs (each vial/BOTTLE has 4 tablets) PO PRN ×2 (23:35)
[2022-08-06] MEDS ORDERED: MESSAGE TO PHARMACY PO ONE (23:35)
[2022-08-06] MEDS ORDERED: morphine 2 MG/ML inj. syringe IV PRN ×2 (23:35)
[2022-08-06] MEDS ORDERED: glucagon, human recombinant 1mg kit SUBCUT PRN (23:35)
[2022-08-06] MEDS ORDERED: insulin Lispro (HumaLOG) vial - multi-dose SQ SCH (23:35)
[2022-08-06] MEDS ORDERED: mag hydrox/Alum hydrox/simeth 30ml oral suspension PO PRN (23:35)
[2022-08-06] MEDS ORDERED: dextrose 50%-water 50ml dispensing syringe IV PRN ×2 (23:35)
[2022-08-06] MEDS ORDERED: magnesium hydroxide 30ml (MOM) UD suspension PO PRN (23:35)
[2022-08-06] MEDS ORDERED: ondansetron/PF 4mg/2ml inj IV PRN (23:35)
[2022-08-07 00:23] LABS: HEMOGLOBIN A1C 6.1 % (4.5-6.2)
[2022-08-07] MEDS ORDERED: MELA3TAB39 PO (00:53)
[2022-08-07] MEDS ORDERED: OMEP20CA16 PO (00:53)
[2022-08-07] MEDS ORDERED: METO-539 PO (00:53)
[2022-08-07] MEDS ORDERED: CYAN500T46 PO (00:55)
[2022-08-07] MEDS ORDERED: IBUP-24 PO (00:55)
[2022-08-07] MEDS ORDERED: METF-436 PO (00:57)
[2022-08-07 01:11] LABS: CLARITY,URINE SLIGHTLY CLOUDY (Clear); COLOR,URINE YELLOW (Yellow); GLUCOSE, URINE NEGATIVE (Neg); KETONES,URINE TRACE mg/dl (Neg); LEUKOCYTE ESTERASE ,URINE TRACE (Neg); NITRITES, URINE POSITIVE (Neg); OCCULT BLOOD,URINE NEGATIVE (Neg); PROTEIN,URINE TRACE mg/dl (Neg); UROBILINOGEN,URINE 0.2 E.U/dL (0.2-1.0)
[2022-08-07 01:24] LABS: SQUAMOUS EPITHELIAL CELL,UR MANY /LPF (FEW); UA COLLECTION TYPE CLN CATCH MIDSTREAM
[2022-08-07 01:26] LABS: BACTERIA,URINE 3+ /HPF (Neg); WBC CLUMPS,URINE FEW /HPF (NEGATIVE); WBC,URINE 30-50 /HPF (0-4)
[2022-08-07] MEDS: normal saline 1000ml 1,000 ML IV SCH ×3 (01:26→13:35)
[2022-08-07 01:27] LABS: RBC,URINE 0-2 /HPF (0-2)
--- NOTE | 2022-08-07 03:28 | NUR ---
patient placed on a hospital bed
[2022-08-07] MEDS ORDERED: ibuprofen 200mg tablet PO PRN (04:45)
[2022-08-07] MEDS ORDERED: diphenhydrAMINE 25mg capsule PO PRN (04:45)
--- NOTE | 2022-08-07 06:29 | NUR ---
Attempted to give report to the nurse. Nurse was not available at this time, I was told the nurse will call me back.
[2022-08-07 07:17] LABS: BASOPHILS # (AUTO) 0.1 X10'3 (0-0.2); BASOPHILS % (AUTO) 1.2 % (0-1); EOSINOPHILS # (AUTO) 0.7 X10'3 (0-0.9); EOSINOPHILS % (AUTO) 9.2 % (0-6); HEMATOCRIT 45.4 % (35.0-45.0); HEMOGLOBIN 15.4 g/dl (12.0-16.0); LYMPHOCYTES % (AUTO) 26.2 % (21-51); MEAN CORPUSCULAR HGB CONC 33.9 g/dL (33.0-36.5); MEAN CORPUSCULAR VOLUME 94.5 FL (78-98); MONOCYTES # (AUTO) 1.1 X10'3 (0-0.9); NEUTROPHILS # (AUTO) 3.6 X10'3 (1.8-7.7); NEUTROPHILS % (AUTO) 48.4 % (42-75); PLATELET COUNT 193 X10'3 (140-440); RED CELL DISTRIBUTION WIDTH 12.9 % (11.5-14.5); WHITE BLOOD COUNT 7.5 X10'3 (4.5-11.0)
[2022-08-07] MEDS ORDERED: pantoprazole 40mg Tablet.DR PO SCH (07:30)
[2022-08-07 07:43] LABS: ALBUMIN 3.4 G/DL (3.4-5.0); ANION GAP 10 (8-16); BLOOD UREA NITROGEN 16 MG/DL (7-18); BUN/CREATININE RATIO 14.3 (10.0-20.0); CALCIUM 9.7 MG/DL (8.5-10.1); CHLORIDE 105 MMOL/L (99-107); CHOL/HDL RATIO 3.6 (0.00-4.99); CHOLESTEROL 185 MG/DL (0-200); CREATININE 1.12 MG/DL (0.40-0.90); GLUCOSE 115 MG/DL (70-104); HDL CHOLESTEROL 52 MG/DL (35-60); LDL CHOLESTEROL 113 MG/DL (50-100); POTASSIUM 3.8 MMOL/L (3.5-5.1); SODIUM 141 MMOL/L (135-145); TOTAL CARBON DIOXIDE 25.6 MMOL/L (24-32); TRIGLYCERIDES 95 MG/DL (20-135); eGFR 48 ML/MIN
[2022-08-07 07:54] LABS: PLATELET ESTIMATE NORMAL; TOTAL CELLS COUNTED 100
[2022-08-07 07:55] LABS: LARGE PLATELETS FEW; STOMATOCYTES FEW
[2022-08-07] MEDS ORDERED: [UNRECOGNIZED DRUG - OTHER] PO SCH (08:00)
[2022-08-07] MEDS ORDERED: metoprolol succinate 25mg (24-HOUR) SR. Tablet PO SCH (08:00)
[2022-08-07] MEDS ORDERED: aspirin 81mg, enteric-coated 1 TAB TABLET.DR PO SCH ×2 (08:00)
[2022-08-07] MEDS ORDERED: docusate sod 100mg capsule PO SCH ×2 (08:00)
[2022-08-07] MEDS ORDERED: cyanocobalamin 500mcg tablet PO SCH (08:00)
[2022-08-07] MEDS ORDERED: clopidogrel 75mg tablet PO SCH (08:00)
[2022-08-07] MEDS ORDERED: enoxaparin 40mg/0.4ml syringe SUBCUT SCH (08:00)
[2022-08-07] MEDS ORDERED: beta-carotene(A) w/C & E + minerals tab PO SCH (08:00)
[2022-08-07] MEDS ORDERED: multivitamins, therapeutics tablet PO SCH (08:00)
[2022-08-07] MEDS ORDERED: ALPRAZolam 0.5mg tablet PO SCH (08:00)
--- NOTE | 2022-08-07 09:23 | NUR ---
Noted pt on carb controlled diet w/ hx DM though A1C 6.1% and Glu 104-126mg/dl without DM medications/glycemic protocol this admit. 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 NIKUNJ paged regarding cancellation of carb controlled diet and transition to heart healthy diet given A1C if agreeable. Addendum: 08/07/22 at [address] Amended: Links added.
[2022-08-07] MEDS ORDERED: lisinopril 10 MG tablet PO SCH (09:30)
[2022-08-07 10:00] VITALS: BP 177/72
[2022-08-07 12:00] VITALS: BP 154/73
--- NOTE | 2022-08-07 15:40 | NUR ---
OCCUPATIONAL HEALTH SPECIALIST documentation: I have reviewed and agree with all interventions, assessments performed and documented by Odalys Rojas LVN.
[2022-08-07 16:22] VITALS: BP 165/77
[2022-08-07] MEDS ORDERED: SUMA50TA PO (16:53)
--- NOTE | 2022-08-07 17:30 | NUR ---
Patient was discharge home with spouse with all belongings. Discharge information was provided and review with patient and spouse whom both verbalize understanding.
[2022-08-07] MEDS ORDERED: METF-1203 PO (20:04)
[2022-08-07] MEDS ORDERED: insulin glargine (Lantus) pen - multi-dose SQ SCH (21:00)
[2022-08-07] MEDS ORDERED: Melatonin 3mg tablet PO SCH (21:00)
== END 2022-08-07 17:30 | disposition home or self-care (01) | DRG 69 ==
LOC: ER 20:09 → ED HOLD 23:47 → ORTHO 4S 08-07 07:30
PROVIDERS: ADMIT Internal Medicine; ATTEND Internal Medicine
DX: G45.9 Transient cerebral ischemic attack, unspecified (principal); E78.00 Pure hypercholesterolemia, unspecified; F17.210 Nicotine dependence, cigarettes, uncomplicated; F41.9 Anxiety disorder, unspecified; E11.22 Type 2 diabetes mellitus with diabetic chronic kidney disease; G43.809 Other migraine, not intractable, without status migrainosus; I12.9 Hypertensive chronic kidney disease with stage 1 through stage 4 chronic kidney disease, or unspecified chronic kidney disease; N18.30 Chronic kidney disease, stage 3 unspecified; Z96.643 Presence of artificial hip joint, bilateral; Z79.84 Long term (current) use of oral hypoglycemic drugs; Z82.49 Family history of ischemic heart disease and other diseases of the circulatory system; Z83.3 Family history of diabetes mellitus; Z88.1 Allergy status to other antibiotic agents; Z88.2 Allergy status to sulfonamides; Z88.8 Allergy status to other drugs, medicaments and biological substances; Z88.6 Allergy status to analgesic agent; Z90.711 Acquired absence of uterus with remaining cervical stump; Z99.3 Dependence on wheelchair; Z91.040 Latex allergy status; Z79.899 Other long term (current) drug therapy
CPT/HCPCS: 36415; 70450; 80048; 80053; 80061; 81001; 82948; 83036; 83735; 83880; 84484; 85007; 85025; 85651; 87081; 93306; 99285; G0378; J1650; J1815; J7030